=== PATIENT | female | born 1935 | race Caucasian/White ===

== ENCOUNTER 2022-02-15 16:41 | Emergency (ER) | payer BC ==
[2022-02-15 17:11] VITALS: TEMP 98; BMI 29.9
[2022-02-15] MEDS ORDERED: BEBTELOVIMAB (EUA) 175 MG/2 ML VIAL IVPUSH ONE (17:39)
[2022-02-15 20:05] VITALS: BP 150/69; PULSE 66
== END 2022-02-15 20:05 | disposition home or self-care (01) ==
LOC: JER 16:41
PROC: 3E033GC Introduction of Other Therapeutic Substance into Peripheral Vein, Percutaneous Approach (ICD-10-PCS; principal; 2022-02-15)
DX: U07.1 COVID-19 (principal)
CPT/HCPCS: 99284-25